=== PATIENT | female | born 1950 | race Caucasian/White ===

== ENCOUNTER → 2017-06-07 | Outpatient (CLI) | payer BC, MEDICARE ==
--- NOTE | 2017-06-10 22:00 | Diagnostic Imaging Report ---
Bilateral screening mammogram 2D views with tomosynthesis The current study was also evaluated with a Computer Aided Detection (CAD) system. Indication: Screening. No current complaints stated on the questionnaire. COMPARISON: 06/04/16. FINDINGS: The breasts are composed of scattered fibroglandular densities. Vascular calcifications are seen. Allowing for technique and positional differences, no suspicious change is seen. IMPRESSION: No significant change. ACR BI-RADS Category 2: Benign findings. Result letter will be mailed to the patient. Note: At least 10% of breast cancer is not imaged by mammography. Dictated by: Dictated on workstation # [id number]
== END ==
LOC: RAD 07:55
PROVIDERS: ATTEND Family Medicine
DX: Z12.31 Encounter for screening mammogram for malignant neoplasm of breast (principal)
CPT/HCPCS: 77067

== ENCOUNTER → 2018-06-09 | Outpatient (CLI) | payer BC, MEDICARE ==
--- NOTE | 2018-06-09 09:17 | Diagnostic Imaging Report ---
INDICATION: Routine screening. COMPARISON: 06/07/2017 and 06/04/2016. TECHNIQUE: 2D and 3D bilateral screening mammography was performed with CAD. FINDINGS: Both breasts are heterogeneously dense, limiting the sensitivity of mammography. Scattered nodular densities in the left breast appear stable and most consistent with benign etiologies. There are benign calcifications bilaterally. No spiculated mass or malignant appearing microcalcifications are seen. The axillae are unremarkable. IMPRESSION: No mammographic features suspicious for malignancy are identified. ACR BI-RADS Category 2: Benign findings. Result letter will be mailed to the patient. Note: At least 10% of breast cancer is not imaged by mammography. Dictated by: Dictated on workstation # [id number]
== END ==
LOC: RAD 07:18
PROVIDERS: ATTEND Family Medicine
DX: Z12.31 Encounter for screening mammogram for malignant neoplasm of breast (principal)
CPT/HCPCS: 77067

== ENCOUNTER 2019-04-15 05:43 | Emergency (ER) | payer BC, MEDICARE ==
[~2019-04-15] VITALS: Ht 165.1 cm; Wt 59.9 kg
[2019-04-15] MEDS ORDERED: NS IV 1000 ML 1,000 ML IV SCH (05:57)
[2019-04-15 06:08] LABS: BASOPHILS % (AUTO) 0 % (0-10); EOSINOPHILS % (AUTO) 0 % (0-10); HEMATOCRIT 41 % (35-52); LYMPHOCYTES % (AUTO) 22 % (12-44); MEAN CORPUSCULAR HEMOGLOBIN 29 PG (25-34); MEAN CORPUSCULAR HGB CONC 32 G/DL (32-36); MEAN CORPUSCULAR VOLUME 92 FL (80-99); MEAN PLATELET VOLUME 9.7 FL (7.4-10.4); MONOCYTES # (AUTO) 0.6 X 10^3 (0.0-1.0); MONOCYTES % (AUTO) 12 % (0-12); NEUTROPHILS # (AUTO) 2.9 X 10^3 (1.8-7.8); NEUTROPHILS % (AUTO) 66 % (42-75); PLATELET COUNT 234 10^3/uL (130-400); RED CELL DISTRIBUTION WIDTH 13.6 % (10.0-14.5); WHITE BLOOD COUNT 4.5 10^3/uL (4.3-11.0)
--- NOTE | 2019-04-15 06:08 | ED Syncope ---
General Chief Complaint: Dizziness/Syncope Stated Complaint: SYNCOPE Source of Information: Patient, EMS, Family Exam Limitations: No Limitations History of Present Illness Date Seen by Provider: Apr 15, 2019 Time Seen by Provider: 05:46 Initial Comments Patient presents to ER by EMS from home with chief complaint that just prior to arrival she was getting up to the bathroom when she had a syncopal episode. She said she sat down on the toilet did not feel well called and her son came and she starts over but caught her before she fell off the toilet. She said she felt very tired like she needed to lay down and her family says that she was repeating the same word, "Sameer" multiple times. Patient then went unco nscious for approximately 5 minutes. She denies any pain now. She says she had a fever of 100.6 yesterday. She says she's felt like she's had a cold coming on for the past 2 days. She does not have any shortness of breath chest pain history of heart disease stroke seizures or syncope. She is followed by Dr. Aime Berry. She denies weakness. EMS reports blood sugar 154 and negative stroke scale. Patient does not have high blood pressure or high cholesterol. No smoking or diabetes. She denies constipation. She uses Metamucil daily to stay regular. Allergies and Home Medications Allergies Coded Allergies: No Known Drug Allergies (Unverified , 02/09/10) Patient Home Medication List Home Medication List Reviewed: Yes Review of Systems Constitutional: chills, fever, malaise EENTM: No ear discharge, No ear pain Respiratory: cough; No short of breath Cardiovascular: No chest pain, No edema Gastrointestinal: No abdominal pain, No nausea, No vomiting Genitourinary: No discharge, No dysuria : No Musculoskeletal: No back pain, No joint pain Skin: No pruritus, No rash Past Bugnjbb-Fxgbrx-Hpamxx Hx Patient Social History Alcohol Use: Denies Use Recreational Drug Use: No Smoking Status: Never a Smoker Recent Foreign Travel: No Contact w/Someone Who Travel: No Past Medical History Reproductive Disorders: Yes Physical Exam Vital Signs Vital Signs - First Documented 04/15/19 05:43 Temp 37.4 Pulse 97 Resp 20 B/P (MAP) 145/83 (103) Pulse Ox 99 Capillary Refill : Height, Weight, BMI Height: '" Weight: lbs. oz. kg; BMI Method: General Appearance: No Apparent Distress, WD/WN HEENT: PERRL/EOMI, TMs Normal, Normal ENT Inspection, Pharynx Normal; No Moist Mucous Membranes Neck: Full Range of Motion, Normal Inspection, Non Tender, Supple Cardiovascular: Regular Rate, Rhythm, No Edema, Normal Peripheral Pulses Respiratory: Chest Non Tender, Lungs Clear, Normal Breath Sounds, No Accessory Muscle Use, No Respiratory Distress Gastrointestinal: Normal Bowel Sounds, No Organomegaly, Non Tender, Soft Extremities: Normal Capillary Refill, Normal Inspection, Normal Range of Motion, Non Tender, No Pedal Edema Neurologic/Psychiatric: Alert, Oriented x3, No Motor/Sensory Deficits, Normal Mood/Affect, nursing program manager II-XII Norm as Tested, Other (NIH 0) Cranial Nerves: Normal Hearing, Normal Speech, PERRL Coordination/Gait: Normal Finger to Nose, Normal Gait Motor/Sensory: No Motor Deficit, No Sensory Deficit, No Pronator Drift Skin: Normal Color, Warm/Dry Focused Exam Lactate Level 04/15/19 06:01: Lactic Acid Level 0.60 Lactic Acid Level Laboratory Tests Test 04/15/19 06:01 Lactic Acid Level 0.60 MMOL/L (0.50-2.00) Progress/Results/Core Measures Results/Orders Lab Results Laboratory Tests Test 04/15/19 05:47 04/15/19 06:01 04/15/19 07:11 Range/Units White Blood Count 4.5 4.3-11.0 10^3/uL Red Blood Count 4.43 4.35-5.85 10^6/uL Hemoglobin 13.0 11.5-16.0 G/DL Hematocrit 41 35-52 % Mean Corpuscular Volume 92 80-99 FL Mean Corpuscular Hemoglobin 29 25-34 PG Mean Corpuscular Hemoglobin Concent 32 32-36 G/DL Red Cell Distribution Width 13.6 10.0-14.5 % Platelet Count 234 130-400 10^3/uL Mean Platelet Volume 9.7 7.4-10.4 FL Neutrophils (%) (Auto) 66 42-75 % Lymphocytes (%) (Auto) 22 12-44 % Monocytes (%) (Auto) 12 0-12 % Eosinophils (%) (Auto) 0 0-10 % Basophils (%) (Auto) 0 0-10 % Neutrophils # (Auto) 2.9 1.8-7.8 X 10^3 Lymphocytes # (Auto) 1.0 1.0-4.0 X 10^3 Monocytes # (Auto) 0.6 0.0-1.0 X 10^3 Eosinophils # (Auto) 0.0 0.0-0.3 10^3/uL Basophils # (Auto) 0.0 0.0-0.1 10^3/uL Prothrombin Time 13.4 12.2-14.7 SEC INR Comment 1.0 0.8-1.4 Activated Partial Thromboplast Time 31 24-35 SEC Sodium Level 141 135-145 MMOL/L Potassium Level 3.7 3.6-5.0 MMOL/L Chloride Level 106 98-107 MMOL/L Carbon Dioxide Level 24 21-32 MMOL/L Anion Gap 11 5-14 MMOL/L Blood Urea Nitrogen 10 7-18 MG/DL Creatinine 1.08 0.60-1.30 MG/DL Estimat Glomerular Filtration Rate 50 BUN/Creatinine Ratio 9 Glucose Level 136 H 70-105 MG/DL Calcium Level 8.9 8.5-10.1 MG/DL Corrected Calcium 8.9 8.5-10.1 MG/DL Total Bilirubin 0.9 0.1-1.0 MG/DL Aspartate Amino Transf (AST/SGOT) 17 5-34 U/L Alanine Aminotransferase (ALT/SGPT) 19 0-55 U/L Alkaline Phosphatase 64 40-136 U/L Troponin I < 0.028 <0.028 NG/ML B-Type Natriuretic Peptide 25.0 <100.0 PG/ML Total Protein 6.8 6.4-8.2 GM/DL Albumin 4.0 3.2-4.5 GM/DL Lactic Acid Level 0.60 0.50-2.00 MMOL/L Urine Color YELLOW Urine Clarity CLEAR Urine pH 7 5-9 Urine Specific [place] 1.005 L 1.016-1.022 Urine Protein 1+ H NEGATIVE Urine Glucose (UA) NEGATIVE NEGATIVE Urine Ketones 1+ H NEGATIVE Urine Nitrite NEGATIVE NEGATIVE Urine Bilirubin NEGATIVE NEGATIVE Urine Urobilinogen NORMAL NORMAL MG/DL Urine Leukocyte Esterase NEGATIVE NEGATIVE Urine RBC (Auto) 2+ H NEGATIVE Urine RBC 5-10 H /HPF Urine WBC NONE /HPF Urine Squamous Epithelial Cells 0-2 /HPF Urine Crystals PRESENT H /LPF Urine Amorphous Sediment MOD SCOTTY PHOSPHATE H /LPF Urine Bacteria FEW H /HPF Urine Casts NONE /LPF Urine Mucus NEGATIVE /LPF Urine Culture Indicated CULTURE PENDING Micro Results Microbiology 04/15/19 Influenza Types A,B Antigen ([facility]) - Final, Complete My Orders Orders - STACY SALES Cbc With Automated Diff (04/15/19 05:57) Comprehensive Metabolic Panel (04/15/19 05:57) Blood Culture (04/15/19 05:57) Sputum Culture (04/15/19 05:57) Urinalysis (04/15/19 05:57) Urine Culture (04/15/19 05:57) Protime With Inr (04/15/19 05:57) Partial Thromboplastin Time (04/15/19 05:57) Chest 1 View, Ap/Pa Only (04/15/19 05:57) Ed Iv/Invasive Line Start (04/15/19 05:57) Ed Iv/Invasive Line Start (04/15/19 05:57) Ekg Tracing (04/15/19 05:57) Troponin I (04/15/19 05:57) Vital Signs Adult Sepsis Patie Q15M (04/15/19 05:57) O2 (04/15/19 05:57) Remove Rings In Anticipation O (04/15/19 05:57) Lactic Acid Analyzer (04/15/19 05:57) Influenza A And B Antigens (04/15/19 05:57) Ns Iv 1000 Ml (Sodium Chloride 0.9%) (04/15/19 05:57) BNP (04/15/19 05:57) Ct Head Wo (04/15/19 06:00) Orthostatic Vital Signs (Adult (04/15/19 06:16) Vital Signs/I&O 04/15/19 04/15/19 04/15/19 05:43 06:09 06:11 Temp 37.4 37.4 Pulse 97 104 97 110 108 Resp 20 20 B/P (MAP) 145/83 (103) 136/79 (98) 145/83 124/76 (92) 118/78 (91) Pulse Ox 99 99 Progress Progress Note #1: Time: 06:12 Progress Note Vasovagal versus other? EKG, orthostatic vital signs, liter fluids, labs, urinalysis, CT of the head or infectious versus other. She is neurologically intact at this point. She remains tachycardic in the low 100s. Afebrile. Progress Note #2: Time: 07:21 Progress Note Heart rate has improved on the 80s. She is feeling much better after the IV fluids. If her urinalysis is clean we will send her home with outpatient follow- up with cardiology in the next month. Erath syncope score 0 points. Low risk; 1.9% risk of 30-day serious adverse event Initial ECG Impression Date: Apr 15, 2019 Initial ECG Impression Time: 05:52 Initial ECG Rate: 97 Initial ECG Rhythm: Normal Sinus Initial ECG Intervals: Normal Initial ECG Impression: Normal, Nonspecific Changes Initial ECG Comparisson: No Previous ECG Available Comment No ST elevation or depression. Diagnostic Imaging Diagonstic Imaging: Xray Plain Films/CT/US/NM/MRI: chest (1v) Reviewed: Reviewed by Me Diagonstic Imaging: CT (without IV contrast) Plain Films/CT/US/NM/MRI: head Comments NAME: ELOINA LEAL [facility] REC#: [id number] PT STATUS: REG ER : 1950 PHYSICIAN: STACY SALES MD ADMIT DATE: 04/15/19/ER Draft Date of Exam:04/15/19 CT HEAD WO PROCEDURE: CT head without contrast. TECHNIQUE: Multiple contiguous axial images were obtained through the brain without the use of intravenous contrast. Auto Exposure Controls were utilized during the CT exam to meet ALARA standards for radiation dose reduction. INDICATION: Altered mental status, syncope. No previous study is available for comparison. FINDINGS: Ventricles and sulci are within normal limits for size. There is hyperdensity within the basal ganglia as well as the dentate nuclei of cerebellum. There is no obvious hemorrhage. There is no abnormal mass effect or shift of midline structures. Calvarium is intact and the visualized paranasal sinuses are clear. IMPRESSION: Dystrophic brain calcifications are likely idiopathic, although these can also be associated with metabolic disorders such as mitochondrial dysfunctions. Clinical correlation would be of use. No definite acute abnormality is identified. Dictated on workstation # [id number] Dict: 04/15/19 0645 Trans: 04/15/19 0649 [id number] Interpreted by: TERENCE WILKINS MD Electronically signed by: Reviewed: Reviewed by Me Departure Impression Primary Impression: Syncope Qualified Codes: R55 - Syncope and collapse Additional Impressions: Brain parenchymal calcification Orthostatic hypotension URI (upper respiratory infection) Qualified Codes: J06.9 - Acute upper respiratory infection, unspecified Mild dehydration Asymptomatic microscopic hematuria Disposition: HOME, SELF-CARE Condition: Improved Departure-Patient Inst. Decision time for Depature: 07:33 Referrals: ANGELA DIAZ MD, CHAD C MD (PCP/Family) Primary Care Physician Patient Instructions: Syncope (Fainting) (DC) Add. Discharge Instructions: Call Dr. Diaz, cardiology for an appointment within the next couple weeks. You can also follow-up with primary care to discuss the dystrophic calcifications seen on the brain which are incidental and unlikely related to your presentation today. Encourage more fluids in the next couple days to stay hydrated. Return to the ER if having further episodes or having chest pain, nausea, significant weakness etc. Follow-up with your primary care doctor in a couple weeks to discuss repeating a urinalysis to see if the microscopic amount of blood has cleared. All discharge instructions reviewed with patient and/or family. Voiced understanding. STACY SALES Apr 15, 2019 06:08
[2019-04-15 06:09] VITALS: BP_SYST 118; BP_SYST 124; BP_SYST 136; BP_DIAS 76; BP_DIAS 78; BP_DIAS 79
[2019-04-15 06:13] LABS: PROTHROMBIN TIME PATIENT 13.4 SEC (12.2-14.7)
[2019-04-15 06:21] LABS: ALANINE AMINOTRANSFERASE 19 U/L (0-55); ALKALINE PHOSPHATASE 64 U/L (40-136); BILIRUBIN,TOTAL 0.9 MG/DL (0.1-1.0); BUN/CREATININE RATIO 9; CALCIUM 8.9 MG/DL (8.5-10.1); CARBON DIOXIDE 24 MMOL/L (21-32); CHLORIDE 106 MMOL/L (98-107); CREATININE SERUM 1.08 MG/DL (0.60-1.30); GFR ESTIMATED 50; GLUCOSE 136 MG/DL (70-105); POTASSIUM 3.7 MMOL/L (3.6-5.0); SODIUM 141 MMOL/L (135-145); TOTAL PROTEIN 6.8 GM/DL (6.4-8.2)
--- NOTE | 2019-04-15 06:50 | Diagnostic Imaging Report ---
PROCEDURE: CT head without contrast. TECHNIQUE: Multiple contiguous axial images were obtained through the brain without the use of intravenous contrast. Auto Exposure Controls were utilized during the CT exam to meet ALARA standards for radiation dose reduction. INDICATION: Altered mental status, syncope. No previous study is available for comparison. FINDINGS: Ventricles and sulci are within normal limits for size. There is hyperdensity within the basal ganglia as well as the dentate nuclei of cerebellum. There is no obvious hemorrhage. There is no abnormal mass effect or shift of midline structures. Calvarium is intact and the visualized paranasal sinuses are clear. IMPRESSION: Dystrophic brain calcifications are likely idiopathic, although these can also be associated with metabolic disorders such as mitochondrial dysfunctions. Clinical correlation would be of use. No definite acute abnormality is identified. Dictated by: Dictated on workstation # [id number]
--- NOTE | 2019-04-15 07:10 | NUR ---
INTRODUCED SELF TO PT. ASSISTED BACK TO BED FROM BATHROOM WITHOUT DIFFICULTY. FAMILY ABS.
[2019-04-15 07:18] LABS: BILIRUBIN,URINE NEGATIVE (NEGATIVE); CLARITY,URINE CLEAR; COLOR,URINE YELLOW; GLUCOSE, URINE (UA) NEGATIVE (NEGATIVE); NITRITE,URINE NEGATIVE (NEGATIVE); PROTEIN,URINE 1+ (NEGATIVE); UROBILINOGEN,URINE NORMAL (NORMAL)
[2019-04-15 07:24] LABS: KETONES,URINE 1+ (NEGATIVE); LEUKOCYTE ESTERASE ,URINE NEGATIVE (NEGATIVE); PH,URINE 7 (5-9)
--- NOTE | 2019-04-15 07:26 | Diagnostic Imaging Report ---
INDICATION: Syncope. PA view of the chest is obtained. COMPARISON: No previous study is available for comparison at this time. FINDINGS: Heart size and pulmonary vasculature are within normal limits, and the lungs are clear, bilaterally. IMPRESSION: Unremarkable chest. Dictated by: Dictated on workstation # [id number]
[2019-04-15 07:31] LABS: AMORPHOUS SEDIMENT,UR MOD AMOR PHOSPHATE /LPF; BACTERIA,URINE FEW /HPF; SQUAMOUS EPITHELIAL CELL,UR 0-2 /HPF
[2019-04-15 07:44] VITALS: BP 136/76
== END 2019-04-15 07:44 | disposition home or self-care (01) ==
LOC: EDUNIT# 05:43 → ER 05:44
DX: R55 Syncope and collapse (principal); G93.89 Other specified disorders of brain; I95.1 Orthostatic hypotension; J06.9 Acute upper respiratory infection, unspecified; E86.0 Dehydration; R31.21 Asymptomatic microscopic hematuria
CPT/HCPCS: 36415; 70450; 71045; 80053; 81000; 83605; 83880; 84484; 85025; 85610; 85730; 87040; 87088; 87804; 93005

== ENCOUNTER → 2019-06-29 | Outpatient (CLI) | payer BC, MEDICARE ==
--- NOTE | 2019-06-29 10:49 | Diagnostic Imaging Report ---
INDICATION: Routine screening. COMPARISON: 06/09/2018 and 06/07/2017. TECHNIQUE: 2D and 3D bilateral screening mammography was performed with CAD. FINDINGS: Both breasts are heterogeneously dense, limiting the sensitivity of mammography. Nodular densities in the left breast are noted. No spiculated mass or malignant appearing microcalcifications are seen. There are benign calcifications. The axillae are unremarkable. IMPRESSION: No mammographic features suspicious for malignancy are identified. ACR BI-RADS Category 2: Benign findings. Result letter will be mailed to the patient. Note: At least 10% of breast cancer is not imaged by mammography. Dictated by: Dictated on workstation # [id number]
== END ==
LOC: RAD 08:04
PROVIDERS: ATTEND Family Medicine
DX: Z12.31 Encounter for screening mammogram for malignant neoplasm of breast (principal)
CPT/HCPCS: 77067

== ENCOUNTER → 2020-08-17 | Outpatient (CLI) | payer BC, MEDICARE ==
--- NOTE | 2020-08-17 13:54 | Diagnostic Imaging Report ---
INDICATION: Routine screening. Comparison is made with prior mammogram from 06/29/2019 and 06/09/2018. 2-D and 3-D bilateral screening mammography was performed with CAD. Scattered fibroglandular densities are identified bilaterally. The parenchymal pattern appears to be stable. Benign nodular densities in the left breast are stable. There are benign calcifications. No spiculated mass or malignant appearing microcalcifications are seen. Axillae are unremarkable. IMPRESSION: BI-RADS Category 2 No mammographic features suspicious for malignancy are identified. ACR BI-RADS Category 2: Benign findings. Result letter will be mailed to the patient. Note: At least 10% of breast cancer is not imaged by mammography. Dictated by: Dictated on workstation # [id number]
== END ==
LOC: RAD 10:16
PROVIDERS: ATTEND Family Medicine
DX: Z12.31 Encounter for screening mammogram for malignant neoplasm of breast (principal)
CPT/HCPCS: 77063; 77067

== ENCOUNTER → 2022-01-12 | Outpatient (CLI) | payer MEDICARE ==
--- NOTE | 2022-01-12 14:05 | Diagnostic Imaging Report ---
Indication: Routine screening. Comparison is made with prior mammogram from 08/17/2020 and 06/29/2019. 2-D and 3-D bilateral screening mammography was performed with CAD. CAD is utilized. The current study was also evaluated with a Computer Aided Detection (CAD) system. Both breasts are heterogeneously dense, limiting the sensitivity of mammography. Nodular density medial left breast is stable. Tiny nodular density in the upper outer right breast is noted which appears benign. Numerous additional circumscribed nodules are present in the superior left breast. No spiculated mass or malignant-appearing microcalcifications are seen. Axillae are unremarkable. IMPRESSION: BI-RADS Category 2 No mammographic features suspicious for malignancy are identified. ACR BI-RADS Category 2: Benign findings. Result letter will be mailed to the patient. Note: At least 10% of breast cancer is not imaged by mammography. Dictated by: Dictated on workstation # [id number]
== END ==
LOC: RAD 09:30
PROVIDERS: ATTEND Family Medicine
DX: Z12.31 Encounter for screening mammogram for malignant neoplasm of breast (principal)
CPT/HCPCS: 77063; 77067

== ENCOUNTER → 2023-01-25 | Outpatient (CLI) | payer MEDICARE, OTHER ==
--- NOTE | 2023-01-25 12:26 | Diagnostic Imaging Report ---
INDICATION: Routine screening. COMPARISON: 01/12/2022 and 08/17/2020. TECHNIQUE: 2D and 3D bilateral screening mammography was performed with CAD. FINDINGS: Scattered fibroglandular densities are identified bilaterally. The previously noted benign nodules in both breasts appear stable. No spiculated mass or malignant-appearing microcalcifications are identified. The axillae are unremarkable. IMPRESSION: No mammographic features suspicious for malignancy are identified. ACR BI-RADS Category 2: Benign findings. Result letter will be mailed to the patient. Note: At least 10% of breast cancer is not imaged by mammography. Dictated by: Dictated on workstation # [id number]
== END ==
LOC: RAD 07:07
PROVIDERS: ATTEND Family Medicine
DX: Z12.31 Encounter for screening mammogram for malignant neoplasm of breast (principal)
CPT/HCPCS: 77063; 77067